=== PATIENT | male | born 2000 | race Hispanic/Latino ===

== ENCOUNTER 2020-05-08 09:07 | Emergency (ER) | payer OTHER, SELFPAY ==
[2020-05-08 09:10] VITALS: BP 144/78; PULSE 76; RESP 14; TEMP 36.9; O2SAT 99; BMI 37.1
--- NOTE | 2020-05-08 09:19 | DI.RAD.S_ITS ---
PROCEDURE: XR ANKLE LT MIN 3V INDICATIONS: twist and fall w/ left ankle pain TECHNIQUE: 3 views of the ankle were acquired. COMPARISON: None. FINDINGS: Bones: No fractures or dislocations. Ankle mortise is normally aligned. No suspicious bony lesions. The talar dome demonstrates no alyson abnormality. Soft tissues: No tibiotalar joint effusion. Achilles tendon appears normal. IMPRESSION: No displaced fractures are seen on these plain films. If there is focal tenderness, or other clinical concern for a fracture not seen on these images in this patient with a given history of trauma, please consider a dedicated CT or a short-term followup plain film series (in 1-2 weeks) for further evaluation. Dictated by: Chris Bruce M.D. on 05/08/2020 at 8:45 Approved by: Chris Bruce M.D. on 05/08/2020 at 8:45
[2020-05-08 09:21] VITALS: PULSE 74
--- NOTE | 2020-05-08 09:25 | ED.LOWEXIN ---
HPI - Extremity Injury (Lower) General Chief Complaint: Extremity Injury, Lower Stated Complaint: twisted lt ankle at work Time Seen by Provider: 05/08/20 09:18 Source: patient Mode of arrival: Wheelchair Limitations: no limitations History of Present Illness HPI Narrative: Patient is a 19-year-old male with no known medical history presenting with left ankle pain. He says he was at work when he twisted his ankle laying down have work over a pipe. He is able to walk on it but it hurts a lot. He has no numbness tingling or weakness. He has significant swelling on lateral side MD complaint: ankle injury Related Data Home Medications Medication Instructions Recorded Confirmed No Known Home Medications 05/08/20 05/08/20 Allergies Allergy/AdvReac Type Severity Reaction Status Date / Time No Known Drug Allergies Allergy Verified 05/08/20 09:19 Review of Systems Review of Systems Narrative: GENERAL: Denies chills,fever HEENT: Denies throat pain RESPIRATORY: Denies dyspnea, cough, wheezing CARDIOVASCULAR: Denies chest pain, palpitations GASTROINTESTINAL: Denies nausea, vomiting MUSCULOSKELETAL: See HPI SKIN: No rash, no laceration, no pruritus NEUROLOGIC: Denies weakness, dizziness, headache, numbness 8 point review of systems is negative except for those stated above and HPI Patient History Social History Smoking Status: Never smoker Smoking Status: Never smoker alcohol intake frequency: 0-2 drinks per day Substance Use Type: does not use Exam Initial Vital Signs Initial Vital Signs: Vital Signs Temperature 98.4 F 05/08/20 09:10 Pulse Rate 76 05/08/20 09:10 Respiratory Rate 14 05/08/20 09:10 Blood Pressure 144/78 H 05/08/20 09:10 Pulse Oximetry 99 05/08/20 09:10 GENERAL: Well-appearing, well-nourished and in no acute distress. CARDIOVASCULAR: peripheral pulses in tact, cap refill <2 sec RESPIRATORY: No respiratory distress, speaks in full sentences without difficulty EXTREMITIES: Normal range of motion, no clubbing or edema. Neurovascularly intact Left ankle swelling just inferior the lateral malleoli Achilles tendon intact distal pedal pulse intact NEUROLOGICAL: Cranial nerves II through XII grossly intact. Normal gait and speech. SKIN: Warm, dry, no petechiae, no rashes or lesions. Course Orders Ordered: ED Orders 05/08/20 09:19 XR ankle LT min 3V Stat Discontinued Medications Ibuprofen (Ibuprofen 400 Mg Tablet) 800 mg PO NOW ONE Stop: 05/08/20 09:25 Last Admin: 05/08/20 09:34 Dose: 800 mg Documented by: MARY Vital Signs Vital signs: Vital Signs - 8 hr 05/08/20 09:10 05/08/20 09:21 05/08/20 10:02 Temperature 98.4 F Pulse Rate 76 82 Pulse Rate [Left Dorsalis Pedis] 74 Respiratory Rate 14 15 Blood Pressure 144/78 H 132/75 Pulse Oximetry 99 99 MDM - Extremity Injury (Lower) Imaging Data Extremity x-ray #1: Radiologist's Impression: PROCEDURE: XR ANKLE LT MIN 3V INDICATIONS: twist and fall w/ left ankle pain TECHNIQUE: 3 views of the ankle were acquired. COMPARISON: None. FINDINGS: Bones: No fractures or dislocations. Ankle mortise is normally aligned. No suspicious bony lesions. The talar dome demonstrates no alyson abnormality. Soft tissues: No tibiotalar joint effusion. Achilles tendon appears normal. IMPRESSION: No displaced fractures are seen on these plain films. If there is focal tenderness, or other clinical concern for a fracture not seen on these images in this patient with a given history of trauma, please consider a dedicated CT or a short-term followup plain film series (in 1-2 weeks) for further evaluation. Dictated by: Chris Bruce M.D. on 05/08/2020 at 8:45 Approved by: Chris Bruce M.D. on 05/08/2020 at 8:45 Discharge Plan Departure Patient Disposition: Home Clinical Impression: Sprain of left ankle Qualifiers: Encounter type: initial encounter Involved ligament of ankle: other ligament Qualified Code(s): S93.492A - Sprain of other ligament of left ankle, initial encounter Instructions: Ankle Sprain Activity Restrictions/Additional Instructions: *You have been diagnosed with left ankle sprain *What to do: Increase activity as tolerated, may start increasing his weight-bearing and walking as needed. Wear his Edwin wrap for as long as it is comfortable. Elevate, ice 20-30 minutes at a time *Continue to take medications as directed Ibuprofen 600 mg every 6 hours if needed for pain *Follow up with your primary care provider in 2-3 days *Return to ER if you should have increasing pain, swelling, weakness or any new, worsening or concerning symptoms Prescriptions: No Action No Known Home Medications RF: 0 Referrals: [facility] [Outside]
[2020-05-08] MEDS: IBUPROFEN 400 MG TABLET 800 MG PO (09:34)
[2020-05-08 10:02] VITALS: BP 132/75; PULSE 82; RESP 15; O2SAT 99
== END 2020-05-08 10:03 | disposition home or self-care (01) ==
PROVIDERS: Emergency Provider Emergency Medicine
DX: S93.492A Sprain of other ligament of left ankle, initial encounter (principal); X50.1XXA Overexertion from prolonged static or awkward postures, initial encounter; Y99.0 Civilian activity done for income or pay
CPT/HCPCS: 73610; 99283